=== PATIENT | male | born 1960 | race Hispanic/Latino ===

== ENCOUNTER 2020-04-23 10:07 | Day surgery (SDC) | payer BC ==
[2020-04-22 16:03] VITALS: BMI 39.5
[~2020-04-23 10:07] MED LIST: EPINEPHrine 0.3 MG in Ophthalmic Irrigation Solution 500 ML IRR SCH; Fentanyl 100 MCG/2 ML VIAL ONE; Midazolam HCl 2 mg/2 ml Vial ONE
[2020-04-23] MEDS ORDERED: Famotidine/PF 20 mg/2ml Vial ONE (10:28)
[2020-04-23] MEDS ORDERED: Cyclopentolate 1% Opth Drop 2 ML BOT ONE (10:35)
[2020-04-23] MEDS ORDERED: Phenylephrine 2.5% Ophth Soln 5 ML BOT ONE (10:35)
[2020-04-23] MEDS ORDERED: Ondansetron PF 4 MG/2 ML Vial ONE (11:22)
[2020-04-23] MEDS ORDERED: Succinylcholine 200 MG/10 ml SYRINGE FS ONE (11:22)
[2020-04-23] MEDS ORDERED: Bupivacaine PF 0.75% SDV 10 ML ONE (11:22)
[2020-04-23] MEDS ORDERED: PROPOFOL 200 MG/20 ML VIAL ONE (11:22)
[2020-04-23] MEDS ORDERED: Lidocaine 4% PF 5 ML AMP ONE (11:22)
[2020-04-23] MEDS ORDERED: Metoclopramide HCl 10 MG/2 ML VIAL ONE (11:22)
[2020-04-23] MEDS ORDERED: PHENYLEPHRINE-NS 100 MCG/ML 10 ML SYRINGE ONE (11:22)
[2020-04-23] MEDS ORDERED: Triamcinolone 40 MG/ML VIAL ONE (11:22)
[2020-04-23] MEDS ORDERED: Lidocaine 1% PF 5 ML VIAL ONE ×2 (11:22)
[2020-04-23] MEDS ORDERED: CEFAZOLIN 1 GM VIAL ONE (11:22)
[2020-04-23] MEDS ORDERED: Maxitrol 0.1% Opth Oint 3.5 GM TUBE ONE (11:22)
== END 2020-04-23 13:50 | disposition home or self-care (01) ==
LOC: SDC 10:07
PROVIDERS: ATTEND Ophthalmology Retina Specialist
PROC: 08T43ZZ Resection of Right Vitreous, Percutaneous Approach (ICD-10-PCS; principal; 2020-04-23)
DX: H33.41 Traction detachment of retina, right eye (principal); H33.011 Retinal detachment with single break, right eye; Z79.84 Long term (current) use of oral hypoglycemic drugs; Z79.899 Other long term (current) drug therapy
CPT/HCPCS: 67025; J0171; J0690; J2250; J2405; J2704; J2765; J3010; J3301; J3490; S0028